=== PATIENT | female | born 1980 | race Caucasian/White ===

== ENCOUNTER 2017-07-12 07:21 | Observation (INO) ==
[2017-07-12] MEDS ORDERED: Hydrocortisone Rectal 2.5% CRM 28 GM TUBE RC PRN (08:14)
[2017-07-12] MEDS: Ringers Solution, Lactated 1,000 ML IVC SCH ×2 (08:20→11:24)
[2017-07-12 08:52] LABS: Bilirubin,Urine Negative (Negative); Blood,Urine Negative (Negative); Clarity,Urine Cloudy (Clear); Color,Urine Yellow (Yellow); Glucose,Urine (UA) Normal (Normal); Ketones,Urine Negative (Negative); Leukocyte Esterase,Urine Negative (Negative); Nitrite,Urine Negative (Negative); PH,Urine 7.5 pH Units (5.0-8.0); Protein,Urine Negative (Neg-Trace); Specific Gravity,Urine 1.027 (1.010-1.025); Urobilinogen,Urine Normal (Normal)
[2017-07-12 08:54] LABS: Bacteria,Urine None Seen per hpf (None-Few); Hyaline Casts,Urine None Seen per lpf (None-Few); Squamous Epithelial Cell,Urine Many per lpf (None-Few); WBC,Urine 0-3 per hpf (0-3)
[2017-07-12 08:56] LABS: Basophils % 0.4 %; Eosinophils # 0.1 K/mcL (0.0-0.6); Eosinophils % 1.6 %; Hematocrit 38.8 % (35.3-44.9); Hemoglobin 12.9 g/dL (11.5-15.4); Immature Granulocytes % 0.3 % (0-4); Lymphocytes # 1.5 K/mcL (0.6-4.6); Lymphocytes % 19.9 %; Mean Corpuscular HGB Conc 33.2 g/dL (31.6-35.5); Mean Corpuscular Hemoglobin 29.9 pg (28.0-33.3); Mean Platelet Volume 9.9 fL (9.4-12.4); Monocytes # 0.6 K/mcL (0.0-1.3); Monocytes % 8.2 %; Neutrophils # 5.1 K/mcL (1.6-8.9); Platelet Count 244 K/mcL (140-400); Red Blood Count 4.31 M/mcL (3.82-4.97); Red Cell Distribution Width 14.1 % (11.5-14.5); Segmented Neutrophils % 69.6 %
[2017-07-12 09:13] LABS: Amphetamine Screen,Urine Negative ng/mL (Cutoff=1000); Barbiturate Screen,Urine Negative ng/mL (Cutoff=200); Benzodiazepines Screen,Urine Negative ng/mL (Cutoff=200); Cannabinoid Screen,Urine Negative ng/mL (Cutoff = 50); Cocaine Screen,Urine Negative ng/mL (Cutoff= 300); Opiate Screen,Urine Negative ng/mL (Cutoff=300); Phencyclidine Screen,Urine Negative ng/mL (Cutoff=25)
--- NOTE | 2017-07-12 09:39 | OB/GYN Progress Note ---
Date of Encounter: 07/12/17 Time of Encounter: 09:31 - Assessment and Plan (1) Diarrhea Current Visit: No Status: Acute NST - Reactive Urine - NSF IV fluids Lomotil prn hydrocortisone cream and tucks pads for hemorrhoids as needed Anticipate discharge home today with follow up in office as scheduled labor precautions and rehydration in information discussed with patient Qualifiers: Diarrhea type: unspecified type Qualified Code(s): R19.7 - Diarrhea, unspecified Subjective - Subjective Principal diagnosis: Dehydration Interval history: Miss Salguero is a at 36 weeks 0 days arrives to labor and delivery triage with c/o contractions every 2 minutes and pain. She states she is leaking some clear fluid, but she did take a bath this morning. She has a significant history for previous C/S, labor, and AMA. She states she has had diarrhea for 6 days, but has not been exposed to anything as far as she knows. She denies vaginal bleeding, headaches, visual disturbances, and epigastric pain. She states positive movement. Antepartum ROS: movement normal, no new complaints, no loss of fluid, no vaginal bleeding, no contractions Objective - Vital Signs Vital Signs: Intake and Output 07/11/17 07/12/17 07/12/17 23:59 07:59 15:59 Other: Weight 85.9 kg Patient Weight 07/12/17 23:59 Weight 85.9 kg - Exam FHR: auscultation normal, category 1 FHR comments: baseline 150, contractions every 2-4 minutes Auscultation: bilateral: normal Abdomen: Present: normal appearance, soft, gravid Uterus: Present: normal. Absent: firm Cervical dilation: FT Cervix effacement: Thick station: -3 - Labs Labs: Abnormal lab results Urine Clarity Cloudy (Clear) A 07/12/17 08:20 Ur Specific [place] 1.027 (1.010-1.025) H 07/12/17 08:20 Urine Microscopic RBC 3-5 per hpf (0-3) H 07/12/17 08:20 Ur Squamous Epith Cells Many per lpf (None-Few) H 07/12/17 08:20
[2017-07-12] MEDS ORDERED: *HR* Nalbuphine 20 MG/ML AMPUL IVP PRN (10:14)
[2017-07-16 08:21] LABS: Ova & Parasite Stain NEGATIVE (Negative)
== END 2017-07-12 15:10 | disposition home or self-care (01) ==
LOC: 1NENULAB
PROVIDERS: ADMIT Student in an Organized Health Care Education/Training Program; ATTEND Student in an Organized Health Care Education/Training Program

== ENCOUNTER → 2017-07-19 14:39 | Observation (INO) ==
[2017-07-19 11:11] VITALS: BP 104/78
[2017-07-19 11:55] LABS: Basophils % 0.2 %; Eosinophils # 0.1 K/mcL (0.0-0.6); Eosinophils % 2.1 %; Hematocrit 39.2 % (35.3-44.9); Hemoglobin 12.9 g/dL (11.5-15.4); Immature Granulocytes % 0.3 % (0-4); Lymphocytes # 1.2 K/mcL (0.6-4.6); Lymphocytes % 18.9 %; Mean Corpuscular HGB Conc 32.9 g/dL (31.6-35.5); Mean Corpuscular Volume 91.2 fL (83.0-100.0); Mean Platelet Volume 9.8 fL (9.4-12.4); Monocytes # 0.4 K/mcL (0.0-1.3); Monocytes % 7.1 %; Neutrophils # 4.4 K/mcL (1.6-8.9); Platelet Count 222 K/mcL (140-400); Red Cell Distribution Width 14.4 % (11.5-14.5); Segmented Neutrophils % 71.4 %
[2017-07-19 12:18] LABS: Alanine Aminotransferase 23 Units/L (7-52); Albumin 3.4 g/dL (3.5-5.7); Albumin/Globulin Ratio 1.3 (1.1-2.2); Alkaline Phosphatase 138 Units/L (34-104); Amphetamine Screen,Urine Negative ng/mL (Cutoff=1000); Aspartate Amino Transferase 28 Units/L (13-39); BUN/Creatinine Ratio 8 (6-26); Barbiturate Screen,Urine Negative ng/mL (Cutoff=200); Benzodiazepines Screen,Urine Negative ng/mL (Cutoff=200); Bilirubin,Total 0.5 mg/dL (0.3-1.0); Blood Urea Nitrogen 4 mg/dL (6-20); Calcium 8.4 mg/dL (8.6-10.3); Cannabinoid Screen,Urine Negative ng/mL (Cutoff = 50); Carbon Dioxide 23 mEq/L (23-29); Chloride 108 mEq/L (98-107); Cocaine Screen,Urine Negative ng/mL (Cutoff= 300); Globulin 2.7 g/dL (2.4-3.5); Glucose 72 mg/dL (70-105); Opiate Screen,Urine Negative ng/mL (Cutoff=300); Osmolality,Calculated 279 (280-300); Phencyclidine Screen,Urine Negative ng/mL (Cutoff=25); Potassium 3.6 mEq/L (3.5-5.1); Sodium 137 mEq/L (136-145); Total Protein 6.1 g/dL (6.4-8.9); eGFR For African Americans > 60 (> 60); eGFR For Non-African Americans > 60 (> 60)
--- NOTE | 2017-07-19 12:49 | OB/GYN Progress Note ---
Date of Encounter: 07/19/17 Time of Encounter: 12:44 - Assessment and Plan (1) 37 weeks gestation of Status: Acute (2) Diarrhea Status: Acute Hospitalist consult ordered - repeat stool cultures - patient unable to have BM while in hospital. Stool culture collection tubes and order given to patient to complete at home CEFM - category I tracing OK to discharge home Qualifiers: Diarrhea type: functional diarrhea Qualified Code(s): K59.1 - Functional diarrhea Subjective - Subjective Principal diagnosis: diarrhea Interval history: Pt presents from office with c/o diarrhea x 2 weeks. She has tried immodium without success. She denies fever, chills, emesis. She reports good FM and denies ctx, lof, and vaginal bleeding. Stool cultures from last week were negative. Antepartum ROS: new complaints (diarrhea x 2 weeks), movement normal, no loss of fluid, no vaginal bleeding, no contractions Objective - Vital Signs Vital Signs: Vital Signs Temp Pulse Resp BP 07/19/17 11:05 97.8 F 91 16 104/78 Intake and Output 07/18/17 07/19/17 07/19/17 23:59 07:59 15:59 Other: Weight 85 kg Patient Weight 07/19/17 23:59 Weight 85 kg - Exam FHR: auscultation normal, category 1 FHR comments: Baseline 130 Moderate variability Accelerations present 15x15 Decelerations absent FHR Category I No toco activity Auscultation: bilateral: normal Abdomen: Present: normal appearance, soft, gravid Uterus: Present: normal, firm - Labs Labs: Abnormal lab results Chloride 108 mEq/L (98-107) H 07/19/17 10:43 BUN 4 mg/dL (6-20) L 07/19/17 10:43 Creatinine 0.53 mg/dL (0.60-1.20) L 07/19/17 10:43 Calculated Osmolality 279 (280-300) L 07/19/17 10:43 Calcium 8.4 mg/dL (8.6-10.3) L 07/19/17 10:43 Alkaline Phosphatase 138 Units/L (34-104) H 07/19/17 10:43 Serum Total Protein 6.1 g/dL (6.4-8.9) L 07/19/17 10:43 Albumin 3.4 g/dL (3.5-5.7) L 07/19/17 10:43
--- NOTE | 2017-07-19 12:53 | Internal Medicine Consult Note ---
Date of Encounter: 07/19/17 Time of Encounter: 12:47 - Assessment and plan (1) Diarrhea Current Visit: Yes Status: Acute Assessment and plan: 2-week history, almost persistent diarrhea; less likely infectious- stool c.diff and ova&parasites negative; f/up stool GI panel and lactoferrin and calprotectin; Supportive care with IV hydration, PRN Loperamide. Dietary changes- avoiding dairy/high fat may help. May start probiotics. LFTs normal, lipase normal, no leukocytosis or anemia; Further plan based on stool test results; Thank you for the Consult. Qualifiers: Diarrhea type: functional diarrhea Qualified Code(s): K59.1 - Functional diarrhea (2) 37 weeks gestation of Current Visit: Yes Status: Acute Assessment and plan: care per primary team; - Time Spent With Patient Total time spent is greater than 50% in coordination of care (as documented) at patient's floor/unit and/or counseling patient: Internal Medicine - CN: HPI - Data of Consult Patient: new to practice Consult date: 07/19/17 Requesting Physician: Enrique Peck MD - Consult Narrative History of present illness: Ms. Salguero is a 37 year old female with no past medical history, L3, 37 weeks gestation, who presents with c/o- diarrhea. Patient reports doing well until 2 weeks ago when she had a sudden new onset of diarrhea, loose watery, with copious mucus, multiple times a day and even during night. Diarrhea is followed by any food or drink that she takes. It is controlled with Imodium, but it makes her bloated and had increased diarrhea after using it. It is intermittently bloody, which she attributes to hemorrhoids, and did have some profuse bleeding last week, when she presented to ER, and sent home with supportive care as her Hb was noted to be stable. No fever, chills, vomiting or abdominal pain. SHe is currently admitted for fluid resuscitation. Stool c.diff, ova and parasites are negative. No prior similar symptoms. Past Med Surg Social Fam HX - Past Medical History Source: patient Medical history: no medical history, other Psychiatric history: anxiety, depression - Past Surgical History Surgical History: - Social History Smoking Status: Never smoker Smokeless Tobacco Status: No Alcohol use: none Drug use: none Current living situation: Home, With Family Activity Level: Independent ambulation Recent Out of Country Travel Within the Last 8 Weeks: No Exposure or Possible Exposure to Illness During Travel: No - Family History Mother Hx Family GI Disorders: Yes (Crohns disease) Mother Grandfather Hx Family Endocrine Disorder: Yes (diabetes) Maternal Grandmother Hx Family Cancer: Yes (breast) - Constitutional Constitutional: no chills, no fever(s), no weakness - EENT Eyes: no blurry vision Ears: no ear pain, no tinnitus - Cardiovascular Cardiovascular ROS IM: no chest pain, no dyspnea - Respiratory Respiratory: no cough, no wheezing - Gastrointestinal Gastrointestinal: as per HPI, bloating, change in stool character, diarrhea, hematochezia, loose stools - Musculoskeletal Musculoskeletal ROS IM: no back pain, no muscle cramps - Integumentary Integumentary IM: no new lesions, no non-healing lesions, no rash - Neurological Neurological ROS: no abnormal gait, no confusion, no focal weakness - Endocrine Endocrine IM: no cold intolerance, no heat intolerance, no polyuria - Hematologic/Lymphatic Hematologic/Lymphatic: no easy bleeding, no easy bruising Internal Medicine - CN: Meds Ferrous Sulfate 325 mg PO 07/12/17 [History] Tablet 1 tab PO DAILY 07/12/17 [History] Dibucaine [Nupercainal] 1 appl TP 3-4XD PRN #1 tube 07/17/17 [Rx] 3 Allergy/AdvReac Type Severity Reaction Status Date / Time ibuprofen AdvReac Mild See Verified 07/19/17 10:59 Comments Internal Medicine - CN: Exam - Constitutional Vitals: Temp Pulse Resp BP 97.8 F 91 16 104/78 07/19/17 11:05 07/19/17 11:05 07/19/17 11:05 07/19/17 11:05 General appearance IM: Present: A&O X 3, answers questions appropriately - Head Head exam: Present: atraumatic - Neck Neck exam general surgery: Present: full ROM - Respiratory Respiratory exam: Present: CTAB - Cardiovascular Cardiovascular exam IM: Present: RRR, +S1, +S2 - GI/Abdominal GI/Abdominal exam IM: Present: distended (nontender, gravid uterus), hyperactive bowel sounds (in RLQ) - Extremities Exam Extremities exam IM: Present: full ROM - Back Exam Back exam: Present: full ROM - Neurological Exam Neurological exam: Present: CN II-XII intact, oriented X3, no focal deficits Internal Medicine - CN: Reslt - Labs CBC & Chem 7: 07/19/17 10:43 07/19/17 10:43 Labs: Short CBC 07/19/17 Range/Units 10:43 WBC 6.1 (4.3-11.1) K/mcL Hgb 12.9 (11.5-15.4) g/dL Hct 39.2 (35.3-44.9) % Plt Count 222 (140-400) K/mcL Neutrophils # 4.4 (1.6-8.9) K/mcL BMP 07/19/17 10:43 Sodium 137 Potassium 3.6 Chloride 108 H Carbon Dioxide 23 BUN 4 L Creatinine 0.53 L Glucose 72 Calcium 8.4 L Liver Function 07/19/17 Range/Units 10:43 Total Bilirubin 0.5 (0.3-1.0) mg/dL AST 28 (13-39) Units/L ALT 23 (7-52) Units/L Alkaline Phosphatase 138 H (34-104) Units/L Albumin 3.4 L (3.5-5.7) g/dL Consult Discharge Plan - Plan Referrals: Rossana Rodriguez, [facility] [Primary Care Provider] -
[~2017-07-19 14:39] MED LIST: Ringers Solution, Lactated 1,000 ML IVC SCH
== END | disposition home or self-care (01) ==
LOC: 1NENULAB
PROVIDERS: ADMIT Obstetrics & Gynecology; ATTEND Obstetrics & Gynecology

== ENCOUNTER 2017-08-08 10:09 | Inpatient (IN) ==
[2017-08-08] MEDS ORDERED: Ringers Solution, Lactated 1,000 ML IVC ONE (10:21)
[2017-08-08] MEDS ORDERED: Oxytocin 20 units/ LR 1000 mL 20 UNIT/1,000 ML BAG IVC ONE (10:27)
[2017-08-08] MEDS ORDERED: CeFAZolin Premix DUPLEX 2,000 MG/50 ML BAG IVPB ONE (10:27)
[2017-08-08] MEDS ORDERED: Ringers Solution, Lactated 1,000 ML IVC SCH (10:30)
[2017-08-08 11:07] LABS: Hematocrit 40.1 % (35.3-44.9); Hemoglobin 13.4 g/dL (11.5-15.4); Immature Granulocytes % 0.2 % (0-4); Lymphocytes % 18.4 %; Mean Corpuscular HGB Conc 33.4 g/dL (31.6-35.5); Mean Corpuscular Hemoglobin 29.3 pg (28.0-33.3); Mean Corpuscular Volume 87.6 fL (83.0-100.0); Mean Platelet Volume 10.3 fL (9.4-12.4); Monocytes % 6.9 %; Platelet Count 191 K/mcL (140-400); Red Blood Count 4.58 M/mcL (3.82-4.97); Red Cell Distribution Width 14.1 % (11.5-14.5); Segmented Neutrophils % 73.8 %
[2017-08-08 11:08] LABS: Basophils % 0.2 %; Eosinophils % 0.5 %; Lymphocytes # 1.5 K/mcL (0.6-4.6); Monocytes # 0.6 K/mcL (0.0-1.3); Neutrophils # 5.9 K/mcL (1.6-8.9)
[2017-08-08] MEDS ORDERED: Naloxone 0.4 MG/ML INJ IVP PRN (11:12)
[2017-08-08] MEDS ORDERED: Famotidine 20 MG/2 ML VIAL IVP PRN (11:12)
[2017-08-08] MEDS ORDERED: Metoclopramide 10 MG/2 ML VIAL IVP PRN ×2 (11:12→16:12)
--- NOTE | 2017-08-08 11:49 | Anesthesia Evaluation PreOp ---
Date of Encounter: 08/08/17 Time of Encounter: 11:10 - Past History Planned Operation: RCS Cardiac History: Denies any Significant Hx Pulmonary History: Denies Any Significant HX INVENTORY ASSOCIATE History: Denies Any Significant HX Other Medical History: Other (COMPLAINS OF UNEXPLAINED DIARRHEA FOR 5 WEEKS FOR WHICH SHE IS BEING WORKED UP FOR) Anesthesia History: Past Anesthesia : Yes Test: Positive Alcohol Use: none Drug use: none Medications and Allergies Tablet 1 tab PO DAILY 07/12/17 [History] Dibucaine [Nupercainal] 1 appl TP 3-4XD PRN #1 tube 07/17/17 [Rx] 3 Allergy/AdvReac Type Severity Reaction Status Date / Time ibuprofen AdvReac Mild See Verified 07/19/17 10:59 Comments - Meds/Allergy Pre-op Review Medications Reviewed: Yes Allergies Reviewed: Yes Beta Blockers on Current Med List: No Anesthesia Results - Labs 08/08/17 10:42 Anesthesia Exam - HEENT Pupil (Motor): Pupils equal Mallampati: II Teeth: Normal Oral Opening: Greater than 3 - INVENTORY ASSOCIATE LOC: Oriented INVENTORY ASSOCIATE Motor: Normal RUE, Normal LUE, Normal RLE, Normal LLE, Normal Face INVENTORY ASSOCIATE Sensory: Normal: RUE, LUE, RLE, LLE, Face - Cardiac Rhythm: Regular Murmur: None JVD: No Carotid Bruit: No - Pulmonary Breath Sounds: bilateral Clear Respiratory Effort: Symmetrical Anesthesia Assess/Plan ASA Score: 2 Modified [place] Scale for Level of Consciousness: Anixous, agitated or restless (STATES LAST CSECTION BABY ONE HOUR AFTER DUE TO AMNIOTIC CORD SYNDROME. STATES ANXIOUS AT PRESENT) Anesthetic Plan: Regional Autologous Blood: No Monitoring Plan: Standard Monitors
[2017-08-08] MEDS ORDERED: *HR* OxyCODONE/APAP 5/325 TABLET PO PRN (11:50)
[2017-08-08] MEDS ORDERED: Acetaminophen IV 1,000 MG/100 ML INFUS..BTL IVPB ONE (11:50)
[2017-08-08] MEDS ORDERED: Ondansetron 4 MG/2 ML VIAL IVP ONE (11:50)
[2017-08-08] MEDS ORDERED: Ondansetron 4 MG/2 ML VIAL IVP PRN ×2 (11:50→16:12)
[2017-08-08] MEDS ORDERED: cefOXitin 2,000 MG in Water for inj. (sterile) 20 ML 10 ML IVP ONE (11:54)
[2017-08-08] MEDS ORDERED: MetroNIDAZOLE 500 MG/100 ML 500 MG/100 ML BAG IVPB ONE (11:54)
--- NOTE | 2017-08-08 11:57 | History & Physical Report ---
Date of Encounter: 08/08/17 Time of Encounter: 11:55 24 Hour HP Update - Instructions Instructions: If the History and Physical is less than 30 days old and was completed prior to A.M. admission and or procedure and has NOT been updated on calendar day of procedure please complete this update prior to performing procedure. - Update Patient reports changes in Medical Condition: No Changes in examination, assessment, or condition: No Changes in Medication: No Preop tests/diagnostics Reviewed: Yes Surgery Remains Indicated: Yes Consent for Planned Operative Procedure(s) Verified: Yes - Pre-Operative Checklist Preoperative Checklist Indicated: Yes Prophylactic Antibiotic Ordered: Yes Home Medications Include Beta Hudosn: No Beta Hudson Taken Today (Day of Surgery): No Beta [place] Taken Yesterday (Day Prior to Surgery): No Is VTE Prophylaxis Indicated?: Yes
[2017-08-08] MEDS ORDERED: cefOXitin 2,000 MG in Water for inj. (sterile) 20 ML 20 ML IVP ONE (12:06)
[2017-08-08] MEDS ORDERED: EPHEDrine 50 MG/ML VIAL ONE (13:07)
[2017-08-08] MEDS ORDERED: *HR* Phenylephrine 10 MG/ML VIAL ONE (13:07)
[2017-08-08] MEDS ORDERED: *HR* Oxytocin 10 UNIT/ML VIAL IM ONE (13:07)
[2017-08-08] MEDS ORDERED: Lidocaine -MPF 1% 5 ML AMPUL ONE (13:07)
[2017-08-08] MEDS ORDERED: Ringers Solution, Lactated 1,000 ML ONE (13:07)
[2017-08-08] MEDS ORDERED: Morphine Sulfate/PF 5mg/10mL Vial ONE (13:07)
[2017-08-08] MEDS ORDERED: *HR* FentaNYL (PF) 100 MCG/2 ML VIAL ONE ×2 (13:07→13:16)
--- NOTE | 2017-08-08 13:59 | OB/GYN Procedure Note ---
Section - Date of procedure: 08/08/17 Preop diagnosis: desires repeat Post-op diagnosis: other (Anterior placenta percreta with uterine dehiscence) Procedure: section, repeat low transverse Surgeon: Mahsa Jacob Estimated blood loss (cc): 500 Was there an home health assistant present: Yes Structural Shop Helper: Pasquale Summers Anesthesiologist: Adilia Shaw Clinical Registered Nurse: Arianna Reynolds Anesthesia Type: Spinal section complications: none Disposition: L&D Recovery Room Specimens: Placenta, Cord segment, Cord blood - (s) A Infant Delivery Date: 08/08/17 Delivery Time: 12:54 Presentation: vertex Position: LOT Route of delivery: other ( section) Gender: Male Viability: Viable Pounds: 6 Ounces: 13 Gram Weight: 3.1 kg at 1 minute: 9 at 5 minutes: 9 Specimens collected: cord blood Placenta: uterine exploration, complete extraction Cord: 3 umbilical vessels - Narrative Narrative: The patient was taken to the operating room and given spinal anesthesia adequate for abdominal and pelvic surgery. The was prepped and draped in the usual sterile fashion. Timeout was completed. A Pfannenstiel skin incision was made through the previous scar. The subcutaneous tissue was sharply dissected down to the fascia. The fascia was incised in the midline and extended bilaterally with Richards scissors.. 2 straight [place] clamps were placed on the inferior fascial edge and the fascia was bluntly and sharply dissected away from the rectus muscles. This was repeated superiorly. Peritoneum was bluntly entered. There were omental and uterine adhesions anteriorly which were lysed with a Bovie and hemostasis confirmed. Peritoneal adhesions were sharply lysed and reflected. The lower uterine segment was identified and there was a uterine dehiscence with placental tissue extending through the thickness of the uterus. There were prominent and dilated blood vessels running inferior to this towards the bladder. Inferior peritoneal reflection was incised and reflected further inferiorly with some ligation of blood vessels. The bladder blade was placed to protect the bladder. Given the identification of the percreta, anesthesia was made aware of the possibility of a significant amount of blood loss and need for hysterectomy. Dr. Summers was contacted in the office to come and assist as a second set of hands to assist with the surgery if needed. The patient was typed and crossed. Instruments were obtained to complete a hysterectomy. Once everything was in place a low transverse incision was made above the dehiscence and bluntly extended. Bluntly through the placenta the head was identified and elevated through the uterine incision and at this time the amniotic sac was ruptured bluntly, clear fluid was seen and the infant was delivered and placed on the maternal abdomen. Cord was clamped and cut after the was bulb suctioned. The vigorous male weighed 6 lbs. 13 oz. and had Apgars of 9 at 1 minute and 9 at 5 minutes. The infant was handed to the nursery care team. The placenta was delivered spontaneous and intact. The uterine cavity was digitally palpated and wiped clean with a moist lap sponge. There were no placental remnants identified. A ring forcep was used to make sure the cervix was dilated and then this was discarded off the field. Clamps were placed on the uterine angles and the uterine incision was closed using 0 Vicryl suture in a running, locking fashion. Gloves were changed. A second imbricating layer completed the uterine closure with 0 Vicryl suture. The uterus was then examined and noted to be hemostatic. The pelvis was then irrigated with a copious amount of sterile water. Again, good hemostasis was identified. Tubes and ovaries were inspected and noted to be grossly normal. The peritoneal edges and rectus muscles were then examined and hemostasis achieved. The fascia was then closed using an 0 PDS loop in a running, nonlocking fashion. Subcutaneous tissue was irrigated with sterile water, good hemostasis was achieved. The skin was then closed using a 4-0 Monocryl in a running subcuticular fashion. A dressing was placed. Estimated blood loss was 500cc. The [place] was noted to be draining clear yellow urine at the end of the procedure. All sponge and instrument counts are correct at the end of the procedure. The patient was taken to the recovery room in stable condition.
[2017-08-08 15:21] LABS: Amphetamine Screen,Urine Negative ng/mL (Cutoff=1000); Barbiturate Screen,Urine Negative ng/mL (Cutoff=200); Benzodiazepines Screen,Urine Negative ng/mL (Cutoff=200); Cannabinoid Screen,Urine Negative ng/mL (Cutoff = 50); Cocaine Screen,Urine Negative ng/mL (Cutoff= 300); Opiate Screen,Urine Negative ng/mL (Cutoff=300); Phencyclidine Screen,Urine Negative ng/mL (Cutoff=25)
[2017-08-08] MEDS ORDERED: Sennosides 8.6 MG TABLET PO PRN (16:12)
[2017-08-08] MEDS ORDERED: Rho Immune Globulin 1,500 UNIT SYRINGE IM ONE (16:12)
[2017-08-08] MEDS ORDERED: Simethicone 80 MG TAB.CHEW PO PRN (16:12)
[2017-08-08] MEDS ORDERED: Ondansetron 4 MG/2 ML VIAL ONE (16:19)
[2017-08-08] MEDS: Oxytocin 20 units/ LR 1000 mL 20 UNIT/1,000 ML BAG IVC SCH (16:39)
[2017-08-08] MEDS ORDERED: Acetaminophen 325 MG TABLET PO PRN (19:02)
[2017-08-08] MEDS: Ibuprofen 600 MG TABLET PO SCH (19:43)
[2017-08-08] MEDS ORDERED: Lanolin 28 GM TUBE TP PRN (20:34)
[2017-08-08] MEDS: *HR* OxyCODONE/APAP 5/325 TABLET PO PRN (21:45)
[2017-08-09] MEDS: Ibuprofen 600 MG TABLET PO SCH ×4 (00:33→18:20)
[2017-08-09] MEDS: Oxytocin 20 units/ LR 1000 mL 20 UNIT/1,000 ML BAG IVC SCH (02:00)
[2017-08-09] MEDS: *HR* OxyCODONE/APAP 5/325 TABLET PO PRN ×2 (04:37→18:21)
[2017-08-09 04:42] LABS: Basophils % 0.4 %; Eosinophils # 0.1 K/mcL (0.0-0.6); Eosinophils % 0.9 %; Hematocrit 27.6 % (35.3-44.9); Immature Granulocytes % 0.2 % (0-4); Lymphocytes # 1.3 K/mcL (0.6-4.6); Lymphocytes % 22.6 %; Mean Corpuscular HGB Conc 33.3 g/dL (31.6-35.5); Mean Corpuscular Hemoglobin 29.8 pg (28.0-33.3); Mean Corpuscular Volume 89.3 fL (83.0-100.0); Mean Platelet Volume 10.5 fL (9.4-12.4); Monocytes # 0.4 K/mcL (0.0-1.3); Monocytes % 7.9 %; Neutrophils # 3.8 K/mcL (1.6-8.9); Platelet Count 157 K/mcL (140-400); Red Blood Count 3.09 M/mcL (3.82-4.97); Red Cell Distribution Width 14.1 % (11.5-14.5)
[2017-08-09 04:44] LABS: Hemoglobin 9.2 g/dL (11.5-15.4)
[2017-08-09] MEDS: Prenatal Vit/FA 1 EACH TABLET PO SCH (08:51)
--- NOTE | 2017-08-09 10:29 | OB/GYN Progress Note ---
Date of Encounter: 08/09/17 Time of Encounter: 10:27 - Assessment and Plan (1) Status post section Current Visit: Yes Status: Acute Stable POD#1 Continue current management Anticipate DC tomorrow. Subjective - Subjective Interval history: Pt states feels well, Tolerating po diet, pain well managed, - flatus, - stool. Patient reports: appetite normal, voiding normally, pain well controlled, ambulating normally [place]: doing well Objective - Vital Signs Latest vital signs: Vital Signs Temp Pulse Resp BP Pulse Ox 08/09/17 08:02 98.3 F 94 16 86/60 100 08/09/17 04:30 97.9 F 96 14 115/66 96 08/09/17 00:40 97.5 F L 89 14 116/80 100 08/08/17 19:15 97.9 F 88 14 112/80 99 08/08/17 18:57 97.6 F 98 16 114/83 97 08/08/17 17:30 97.8 F 100 16 102/61 98 08/08/17 16:45 97.6 F 104 14 103/74 97 08/08/17 16:15 98.6 F 99 16 117/77 100 Intake and Output 08/08/17 08/09/17 08/09/17 23:59 07:59 15:59 Intake Total 950 / 950 Output Total 300 / 300 1500 / 1500 Balance -300 / -300 -550 / -550 Intake: IV Fluids 950 / 950 Pitocin 20 unit In 1,000 ml @ 950 / 950 125 mls/hr IVC .Q8H [facility] Rx#: [id number] Output: Catheter 300 / 300 1500 / 1500 Other: Stool Characteristics Normal for Patient Weight 85.5 kg - Exam Lungs: left: normal Chest: Normal S1, Normal S2 Extremities: Present: normal Abdomen: Present: normal appearance, soft Incision: Present: intact, dressed Uterus: Present: firm (U) - Labs Labs: Laboratory Results - last 24 hr 08/08/17 08/08/17 08/08/17 10:42 10:42 13:23 WBC 8.1 RBC 4.58 Hgb 13.4 Hct 40.1 MCV 87.6 MCH 29.3 MCHC 33.4 RDW 14.1 Plt Count 191 MPV 10.3 Immature Gran % 0.2 Seg Neutrophils % 73.8 Lymphocytes % 18.4 Monocytes % 6.9 Eosinophils % 0.5 Basophils % 0.2 Neutrophils # 5.9 Lymphocytes # 1.5 Monocytes # 0.6 Eosinophils # 0.0 Basophils # 0.0 Urine Opiates Screen Negative Ur Barbiturates Screen Negative Ur Phencyclidine Scrn Negative Ur Amphetamines Screen Negative U Benzodiazepines Scrn Negative Urine Cocaine Screen Negative U Marijuana (THC) Screen Negative Specimen Rejected Hemolyzed Baby's Blood Type Mother's Blood Type Rhogam Indicated 08/08/17 08/09/17 13:45 04:23 WBC 5.5 RBC 3.09 L Hgb 9.2 L D Hct 27.6 L MCV 89.3 MCH 29.8 MCHC 33.3 RDW 14.1 Plt Count 157 MPV 10.5 Immature Gran % 0.2 Seg Neutrophils % 68.0 Lymphocytes % 22.6 Monocytes % 7.9 Eosinophils % 0.9 Basophils % 0.4 Neutrophils # 3.8 Lymphocytes # 1.3 Monocytes # 0.4 Eosinophils # 0.1 Basophils # 0.0 Urine Opiates Screen Ur Barbiturates Screen Ur Phencyclidine Scrn Ur Amphetamines Screen U Benzodiazepines Scrn Urine Cocaine Screen U Marijuana (THC) Screen Specimen Rejected Baby's Blood Type A RH NEGATIVE Mother's Blood Type A RH NEGATIVE Rhogam Indicated NO
[2017-08-10] MEDS: *HR* OxyCODONE/APAP 5/325 TABLET PO PRN ×2 (00:24→04:37)
[2017-08-10] MEDS: Ibuprofen 600 MG TABLET PO SCH ×2 (00:24→08:45)
[2017-08-10 08:24] VITALS: BP 102/69
[2017-08-10] MEDS: Prenatal Vit/FA 1 EACH TABLET PO SCH (08:46)
--- NOTE | 2017-08-10 10:20 | Discharge Summary ---
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 (2) anemia Priority: Secondary Status: Acute Comments: Continue iron twice a day for 3 months (3) Status post section Priority: Primary Status: Acute Comments: Feeling well Out of bed without dizziness Tolerating regular diet and pain well controlled with by mouth pain meds Voiding independently Passing flatus but no BM yet Lochia light Ambulating independently Vital signs stable Discharge home today - Discharge Medications Prescriptions: OxyCODONE/APAP 5/325 [Percocet 5/325 MG] 1 each PO Q4HR PRN 5 Days #30 tablet PRN Reason: Moderate pain 4-6 Ibuprofen [Motrin] 600 mg PO Q6HR #30 tablet Docusate [Colace] 100 mg PO BID #60 capsule Escitalopram [Lexapro] 20 mg PO DAILY #30 tablet Ferrous Sulfate 325 mg PO BID #60 tablet Home Medications: Tablet 1 tab PO DAILY 07/12/17 [History] Dibucaine [Nupercainal] 1 appl TP 3-4XD PRN #1 tube 07/17/17 [Rx] Acetaminophen [Tylenol] 650 mg PO Q6HR PRN tablet 08/10/17 [Rx] Docusate [Colace] 100 mg PO BID #60 capsule 08/10/17 [Rx] Escitalopram [Lexapro] 20 mg PO DAILY #30 tablet 08/10/17 [Rx] Ferrous Sulfate 325 mg PO BID #60 tablet 08/10/17 [Rx] Ibuprofen [Motrin] 600 mg PO Q6HR #30 tablet 08/10/17 [Rx] Lanolin 1 appl TP QID PRN tube 08/10/17 [Rx] Mupirocin [Bactroban Oint] 1 appl TP QID tube 08/10/17 [Rx] OxyCODONE/APAP 5/325 [Percocet 5/325 MG] 1 each PO Q4HR PRN 5 Days #30 tablet [Rx] Simethicone [Gas-X] 80 mg PO TID PRN tab.chew 08/10/17 [Rx] Allergies/Adverse Reactions: 3 Allergy/AdvReac Type Severity Reaction Status Date / Time ibuprofen AdvReac Mild See Verified 07/19/17 10:59 Comments Data Procedures and tests throughout hospitalization: Laboratory Tests 08/08/17 08/08/17 08/08/17 10:42 10:42 13:23 WBC 8.1 RBC 4.58 Hgb 13.4 Hct 40.1 MCV 87.6 MCH 29.3 MCHC 33.4 RDW 14.1 Plt Count 191 MPV 10.3 Immature Gran % 0.2 Seg Neutrophils % 73.8 Lymphocytes % 18.4 Monocytes % 6.9 Eosinophils % 0.5 Basophils % 0.2 Neutrophils # 5.9 Lymphocytes # 1.5 Monocytes # 0.6 Eosinophils # 0.0 Basophils # 0.0 Urine Opiates Screen Negative Ur Barbiturates Screen Negative Ur Phencyclidine Scrn Negative Ur Amphetamines Screen Negative U Benzodiazepines Scrn Negative Urine Cocaine Screen Negative U Marijuana (THC) Screen Negative Specimen Rejected Hemolyzed Baby's Blood Type Mother's Blood Type Rhogam Indicated 08/08/17 08/09/17 13:45 04:23 WBC 5.5 RBC 3.09 L Hgb 9.2 L D Hct 27.6 L MCV 89.3 MCH 29.8 MCHC 33.3 RDW 14.1 Plt Count 157 MPV 10.5 Immature Gran % 0.2 Seg Neutrophils % 68.0 Lymphocytes % 22.6 Monocytes % 7.9 Eosinophils % 0.9 Basophils % 0.4 Neutrophils # 3.8 Lymphocytes # 1.3 Monocytes # 0.4 Eosinophils # 0.1 Basophils # 0.0 Urine Opiates Screen Ur Barbiturates Screen Ur Phencyclidine Scrn Ur Amphetamines Screen U Benzodiazepines Scrn Urine Cocaine Screen U Marijuana (THC) Screen Specimen Rejected Baby's Blood Type A RH NEGATIVE Mother's Blood Type A RH NEGATIVE Rhogam Indicated NO Labs on day of discharge: Labs from last 24 hours 08/08/17 13:45 Baby's Blood Type A RH NEGATIVE Mother's Blood Type A RH NEGATIVE Rhogam Indicated NO Date of admission: 08/08/17 10:09 Primary care physician: Rossana Rodriguez CNP Discharging clinician: Alejandra Giraldo Anticipated date of discharge: 08/10/17 - Patient Status Disposition: Home, Self-Care Condition: Good Functional capacity at discharge: independent ambulation Overall status at discharge: patient is progressing back to baseline - Discharge Instructions Follow Up With: Rossana Rodriguez CNP [Primary Care Provider] - Mahsa Jacob MD [Partnered Physician] - - Diet and Activity Activity: increase activity as tolerated Diet: regular diet Hospital Course Reason for admission: section, IUP at term Delivery: section Episiotomy: none Laceration: none Other procedures: none complications: none Discharge diagnosis: IUP at term delivered [place] baby: male Time spent discussing smoking cessation with patient: 3 to 10 minutes Time Attestation: Total time spent providing and/or coordinating discharge services: Time Spent: Less than 30 minutes - VTE Reasons for not Prescribing Prophylaxis: Treatment not Indicated - Low risk for VTE Documentation of Mechanical Device: Intermittent pneumatic compression device Exam - Constitutional Vitals: Temp Pulse Resp BP Pulse Ox 98.3 F 107 16 102/69 98 08/10/17 08:22 08/10/17 08:22 08/10/17 08:50 08/10/17 08:22 08/10/17 08:22 General appearance IM: A&O X 3 - Respiratory Respiratory exam: Present: CTAB - Cardiovascular Cardiovascular exam IM: Present: RRR, +S1, +S2 - GI/Abdominal GI/Abdominal exam IM: normal bowel sounds, no peritoneal signs Incision: normal, intact - Rectal Rectal exam: deferred - Uterine Tone: Firm Uterus Position: At Umbilicus, Midline - Extremities Exam Extremities exam IM: Present: normal inspection, radial pulses palpable and symmetrical - Neurological Exam Neurological exam: alert, oriented X3 - Psychiatric Additional comments: Patient reports history of moderate to severe depression without psychosis. We reviewed the signs and symptoms of depression and she verbalizes when to call for further evaluation. She is requesting prescription for Lexapro today, which will be provided.
== END 2017-08-10 14:23 | disposition home or self-care (01) | DRG 766 ==
LOC: 1NENULAB 10:09 → 1NENUOBS 16:23
PROVIDERS: ADMIT Obstetrics & Gynecology; ATTEND Obstetrics & Gynecology

== ENCOUNTER → 2018-11-01 04:34 | Observation (INO) ==
[2018-11-01 02:21] LABS: Basophils % 0.3 %; Eosinophils # 0.1 K/mcL (0.0-0.6); Eosinophils % 1.3 %; Hematocrit 31.3 % (35.3-44.9); Hemoglobin 9.7 g/dL (11.5-15.4); Immature Granulocytes % 0.4 % (0-4); Lymphocytes # 1.6 K/mcL (0.6-4.6); Lymphocytes % 22.3 %; Mean Corpuscular Hemoglobin 26.2 pg (28.0-33.3); Mean Corpuscular Volume 84.6 fL (83.0-100.0); Mean Platelet Volume 9.2 fL (9.4-12.4); Monocytes # 0.8 K/mcL (0.0-1.3); Monocytes % 10.7 %; Neutrophils # 4.7 K/mcL (1.6-8.9); Nucleated Red Blood Cells 0.3 /100 WBC (0); Platelet Count 231 K/mcL (140-400); Red Cell Distribution Width 14.7 % (11.5-14.5); White Blood Count 7.2 K/mcL (4.3-11.1)
[2018-11-01 03:08] LABS: Prothrombin Time 11.6 Seconds (9.4-12.1)
[2018-11-01 03:11] LABS: Activated Partial Thrombo Time 22.6 Seconds (26.0-36.0)
--- NOTE | 2018-11-01 03:28 | OB/GYN Progress Note ---
Date of Encounter: 11/01/18 Time of Encounter: 02:51 - Assessment and Plan (1) 33 weeks gestation of Current Visit: Yes Status: Acute NST reactive CBC and Coags ordered Discharge via squad to [facility]; accepted by Dr Irizarry at 0250 POC per consult with Dr Bynum. (2) Placenta previa Current Visit: Yes Status: Acute Qualifiers: Trimester: third trimester Qualified Code(s): O44.03 - Complete placenta previa NOS or without hemorrhage, third trimester (3) Vaginal bleeding during Current Visit: Yes Status: Acute Subjective - Subjective Principal diagnosis: Vaginal Bleeding Interval history: Mrs Salguero is a at 33 weeks and 1 days that presents to triage with c/o vaginal bleeding with clots that began 20 minutes prior to arrival. She has a known complete placenta previa with a possible placenta percreta with bladder involvement. She states positive movement. She denies headaches, vision changes, epigastric pain, and contractions. She is seen by [facility] for her care due to her high risk . She has been staying in [place] in a hotel room and came back to [place] this weekend. She states she has not been overly active. Antepartum ROS: movement normal, contractions Objective - Exam FHR: auscultation normal FHR comments: Vaseline 150 with moderate variabilty and 15 x 15 accels. No decels present Contractions palpate moderate; per toco are every 4-6 minutes. Vaginal exam not completed due to known placenta previa Auscultation: bilateral: normal Abdomen: Present: normal appearance, soft, gravid. Absent: tenderness Uterus: Present: normal. Absent: firm, tenderness Comments: Full pad with 1/2 dollar sized clot when patient arrived to the restroom. Not actively bleeding from vagina at this time. Used bedpan and passed no clots. Urine is blood tinged; likely vaginal contamination - Labs Labs: Abnormal lab results RBC 3.70 M/mcL (3.82-4.97) L 11/01/18 01:47 Hgb 9.7 g/dL (11.5-15.4) L 11/01/18 01:47 Hct 31.3 % (35.3-44.9) L 11/01/18 01:47 MCH 26.2 pg (28.0-33.3) L 11/01/18 01:47 MCHC 31.0 g/dL (31.6-35.5) L 11/01/18 01:47 RDW 14.7 % (11.5-14.5) H 11/01/18 01:47 MPV 9.2 fL (9.4-12.4) L 11/01/18 01:47 Nucleated RBCs/100 WBC 0.3 /100 WBC (0) H 11/01/18 01:47
[~2018-11-01 04:34] MED LIST changes: +Betamethasone Acet/SodPhos 30 MG/5 ML VIAL IM SCH; +Ringers Solution, Lactated 1,000 ML ONE
== END | disposition other institution (70) ==
LOC: 1NENULAB
PROVIDERS: ADMIT Obstetrics & Gynecology; ATTEND Obstetrics & Gynecology